=== PATIENT | male | born 1935 | race Caucasian/White ===

== ENCOUNTER 2017-08-05 16:48 | Inpatient (IN) | payer OTHER ==
[~2017-08-05] VITALS: Ht 177.8 cm; Wt 90.4 kg
--- NOTE | ~2017-08-05 | S ---
[facility] [place] [place] [address] SURGICAL PATH RPT PROCEDURE Name: RYDER MEDINA Room #: 440-P DIS IN M.R.#: [id number] Admission: 08/05/17 Date of : 37 Discharge: 08/09/17 Report #: [id number] Path Case #: [id number] PATHOLOGY REPORT COLLECTION DATE: 08/07/2017 RECEIVED DATE: 08/09/2017 SUBMITTING PHYS: Dr. Raul Dinero OTHER PHYS: Dr. Reji Campos SPECIMEN(S) RECEIVED: A.Bx of thickened fold at duodenum B.Bx of gastritis C.Bx of nodule at high cardia * * * * * * * * * * * * FINAL DIAGNOSIS: A. Small bowel, duodenum, biopsy: - Unremarkable duodenal mucosa. B. Stomach, biopsy: - Mild chronic inactive gastritis. - An H. pylori immunostain is negative (Block B1; appropriately reactive control). C. Stomach, nodule, biopsy: - Features suggestive of hyperplastic polyp. PATHOLOGIST: Omero Rascon M.D. REPORT ELECTRONICALLY SIGNED BY: Omero Rascon M.D. DATE/TIME: 08/10/2017 14:29 * * * * * * * * * * * * GROSS PATHOLOGY: A. Received in formalin labeled "Ryder Medina, BX of thickened fold at duodenum," is a segment of lang soft tissue measuring 0.4 cm in maximum dimension. The specimen is submitted entirely in cassette A1. B. Received in formalin labeled "KATERINA Kamara of gastritis," are 5 segments of lang soft tissue measuring 1.1 x 0.5 x 0.3 cm in aggregate dimensions and ranging from 0.3 to 0.6 cm in maximum dimension. The specimen is submitted entirely in cassette B1. C. Received in formalin labeled "KATERINA Kamara of nodule at high cardia," are 2 segments of lang soft tissue measuring 0.6 x 0.3 x 0.3 cm in aggregate dimensions and ranging from 0.2 to 0.4 cm in maximum dimension. The specimen is submitted entirely in cassette C1. (TSD; 08/09/2017) [address] [place] [address] SURGICAL PATH RPT PROCEDURE Name: RYDER MEDINA Room #: 440-P DIS IN M.R.#: [id number] Admission: 08/05/17 Date of : 37 Discharge: 08/09/17 Report #: [id number] Path Case #: [id number] CLINICAL HISTORY: Pre-OP DX: Nausea, vomiting, dysphagia Post-OP DX: Gastritis, thickened fold, esophagitis, nodules INITIAL CPT CODE(S): A; 42016 B; 07704, 12805 C; 15827 Professional services performed by [facility] at [facility] [address] [place] [address] Technical services performed by [facility] at [address] [place] [address]., [address], [place] [address]. [facility] [address] [place] [address] PHONE: [phone] DIRECTOR: Nicolas Rubin M.D. * * * END OF REPORT * * *
--- NOTE | ~2017-08-05 | P ---
[facility] [place] [address] PROCEDURE REPORT Name: RYDER WORKMAN Room #: 440-P [facility] IN ..#: [id number] Admission: 08/05/17 Attend Phys: Reji Osborne MD Discharge: Date of : 37 Report #: [id number] THIS REPORT FOR: //name// CC: Mahogany Osborne MD DATE OF SERVICE: 08/07/2017 PROCEDURE PERFORMED: Upper endoscopy with biopsies and esophageal dilation. HISTORY OF PRESENT ILLNESS: The patient is an 81-year-old male with flu-like symptoms beginning last week, had recurrent nausea, vomiting, some abdominal pain, presented to the local hospital. CT scan there revealed what appeared to be a duodenal mass. He is feeling better at this time. He has had a previous upper endoscopy with dilation for dysphagia in the past, which was helpful. This was several years ago. Plan is for EGD with dilation and further evaluation. DESCRIPTION OF PROCEDURE: The risks and benefits of the procedure were explained to the patient, those risks including but not limited to bleeding, perforation, the risk of sedation. He understood these risks and gave informed consent. Sedation was given using propofol and ketamine per anesthesia. Next, using a standard U*tiquen upper endoscope, the scope was placed in the patient's mouth and advanced under direct vision through the esophagus, stomach and into the third portion of the duodenum. The upper and mid esophagus were normal in appearance. There was evidence of grade B erosive esophagitis at the GE junction. Just below the GE junction in the high cardia was a small nodule, approximately 3-4 mm in size. Biopsies were obtained. There was no obvious stricture in the distal esophagus, although it was somewhat narrowed and again there was evidence of reflux esophagitis. Overall, the gastric mucosa was normal. The pylorus was normal and patent. The duodenal bulb was normal. As I advanced the scope from the first to second portion of the duodenum, there was what appears to be a submucosal type mass. This does not cause an obstruction. Next, the scope was then brought back up into the patient's stomach and a Savary guidewire was inserted through the scope, leaving the guidewire in place. Next, a 51-[place] Savary dilation of his esophagus was then performed without difficulty. The wire and dilator removed. I was able to advance the scope through this quite easily. There was no real mucosal abnormality at this area, but there was either a submucosal mass or some extrinsic compression in this area. Opposite of that area, there was a thickened fold of the duodenum. Biopsies were obtained. The third portion of the duodenum was normal. I was able to identify the major papilla, which appeared normal in the second portion. The scope was then withdrawn and the procedure terminated. The patient tolerated the procedure well. [address] [address] PROCEDURE REPORT Name: RYDER WORKMAN Room #: 440-P [facility] IN M.R.#: [id number] Admission: 08/05/17 Attend Phys: Reji Osborne MD Discharge: Date of : 37 Report #: [id number] IMPRESSION: 1. Grade B erosive esophagitis. 2. Mild narrowing at the distal esophagus. 3. High cardia nodule. 4. Submucosal mass versus slight extrinsic decompression at the second portion of the duodenum. 5. Thickened fold at second portion of the duodenum. RECOMMENDATIONS: 1. Await biopsy results. 2. Observe the patient post-dilation. 3. Would recommend an endoscopic ultrasound for further evaluation of the duodenal submucosal mass in the near future as an outpatient. 4. Daily PPI therapy. Thank you for allowing me to participate in his care. <ELECTRONICALLY SIGNED> By: Raul Dinero MD 08/08/17 1030 1528 [id number] Raul Dinero MD /nt
--- NOTE | ~2017-08-05 | EKG ---
[address] [address] ELECTROCARDIOGRAM REPORT Name: WELFARE SPECIALISTRYDER J Room #: 440-P ADM IN M.R.#: [id number] Admission: 08/05/17 Attend Phys: Reji Osborne MD Discharge: Date of : 37 Report #: [id number] THIS REPORT FOR: //name// [facility] Test Date: 2017-08-05 Test Time: 23:23:32 Pat Name: RYDER WORKMAN Department: Room: 440 P Gender: M Marketing Operations Intern: patricia : 1935 Requested By: Yari Deshpande Order Number: [id number] MD: Cooper Baez Measurements Intervals [place] Rate: 88 P: 75 CA: 258 QRS: 88 QRSD: 153 T: 34 QT: 391 QTc: 473 Interpretive Statements Sinus rhythm Atrial premature complex Prolonged CA interval Right bundle branch block No previous ECG available for comparison Electronically Signed On 08-06-2017 8:07:33 CDT by Cooper Baez [email or web address] <ELECTRONICALLY SIGNED> By: Cooper Baez MD 08/06/17 0807 D: 09/2322 22 Cooper Baez MD /JESUS
--- NOTE | ~2017-08-05 | HC ---
[facility] [place] [place] [address] CONSULTATION Name: RYDER WORKMAN Hilary Room #: 440-P [facility]..#: [id number] Admission: 08/05/17 Attend Phys: Reji Osborne MD Discharge: 08/09/17 Date of : 36 Report #: [id number] THIS REPORT FOR: //name// CC: ALY Osborne REASON FOR CONSULTATION: The patient is an 81-year-old male with acute GI symptoms and possible mass of duodenum. HISTORY OF PRESENT ILLNESS: This is an 81-year-old male with some major health problems. There has been chronic obstructive pulmonary disease. He was a former cigarette smoker. More recently, he was treated as an outpatient about 3 weeks ago for pneumonia, with 10 days of antibiotics. He reports he has recovered from that. At baseline, he uses 2 liters of oxygen at night for his chronic obstructive pulmonary disease. Interestingly, last weekend, he started to feel bad and he stated he was "sick," like he had the flu. Initially, it started with a sore throat, and then he developed some episodes of nausea and vomiting. He had trouble eating and it was several days before he could start eating. He did not have any severe abdominal pain, but he had vague abdominal discomfort and some gurgling in his abdomen. It was also noted that his was ill about the same time as well. He thought he was getting better and started eating some, but yesterday felt worse. It started with lots of nausea and vomiting. He presented to the hospital at [place] in [place]. He underwent evaluation which included a CT, which revealed opacity in the right lung. He also had a 2.1 x 2.2 x 3.0 cm hyperenhancing mass, inseparable from the posterior margin of the first and second portion of duodenum. Etiology was not entirely clear. The patient reports only GI problem in the past has been dysphagia, which he was dilated several years ago. He reports nothing else was found. He reports until his acute illness, he has not had any problems with nausea, vomiting, or altered bowel habits. He did have a colonoscopy about a year ago and was told he had a small colon polyp. In addition, he does have dysphagia for solids such as taking pills. PAST MEDICAL HISTORY: Chronic obstructive pulmonary disease, high blood pressure, hyperlipidemia, enlarged prostate, reflux disease, pneumonia recently, esophageal stricturing. PAST SURGICAL HISTORY: Back surgery and hernia surgery x 3. ALLERGIES: HYDROCODONE, CODEINE, LISINOPRIL, HYDROCHLOROTHIAZIDE, LOVASTATIN, AND OMEPRAZOLE. [address] [address] CONSULTATION Name: RYDER WORKMAN Room #: 440-P [facility].#: [id number] Admission: 08/05/17 Attend Phys: Reji Osborne MD Discharge: 08/09/17 Date of : 37 Report #: [id number] USUAL HOME MEDICATIONS: Include AccuNeb 3 mL every 4 hours, Fosamax 70 mg weekly, aspirin 81 mg daily, Symbicort 160 mcg twice daily, carvedilol 6.25 mg twice daily, gemfibrozil 600 mg twice daily, prednisone 10 mg daily, tamsulosin 0.4 mg daily. FAMILY HISTORY: No family history of colon cancer or ulcer disease. SOCIAL HISTORY: He is . He is a former cigarette smoker. He drank alcohol in the past, but has not done so in many years. REVIEW OF SYSTEMS: GENERAL: No change in weight, fever or chills. CENTRAL NERVOUS SYSTEM: No focal weakness, numbness, loss of consciousness strokes. ENT: Hard of hearing. No change in vision or sores in the mouth. PULMONARY: Recent pneumonia, chronic obstructive pulmonary disease, requires oxygen at night. CARDIOVASCULAR: No chest pain, chest tightness or palpitations. GASTROINTESTINAL: Reflux symptoms in the past, treated with acid inhibitors. He also has had esophageal dilation. No history of liver disease or gallbladder disease. Small polyp on a colonoscopy. GENITOURINARY: Enlarged prostate, no kidney stones or urinary tract infections. MUSCULOSKELETAL: Back surgery. Arthralgias in his hands. SKIN: Without rashes. PSYCHIATRIC: No depression, anxiety or bipolar illness. ENDOCRINE: He is not aware of diabetes or thyroid problems, nor has he had change in hair, skin or weight. HEMATOLOGIC: No bleeding, bruising or malignancies. PHYSICAL EXAMINATION BRIEF HISTORY: GENERAL: The patient is a well-developed, well-nourished, overweight male, in no acute distress. VITAL SIGNS: Blood pressure 152/85, pulse of 83. HEENT: Anicteric. Pupils equal and round. Oropharynx clear. NECK: Supple. CHEST: Clear. HEART: Regular rate and rhythm, normal S1 and S2. ABDOMEN: Normal bowel sounds, soft, nontender, without hepatosplenomegaly or masses. RECTAL: Not done. EXTREMITIES: Without cyanosis, clubbing, edema. NEUROLOGIC: Oriented to person, place and time. Moves all 4 extremities well. LABORATORY DATA: White count 11.5, hemoglobin 11.8. MCV 86.8. Electrolytes unremarkable. Creatinine 0.7. [facility] [address] [place] [address] CONSULTATION Name: RYDER WORKMAN Room #: 440-P DIS IN M.R.#: [id number] Admission: 08/05/17 Attend Phys: Reji Osborne MD Discharge: 08/09/17 Date of : 37 Report #: [id number] ASSESSMENT: 1. Duodenal mass. It is not clear whether it is intrinsic or extrinsic to duodenum. I doubt current symptoms are related to this lesion. 2. Acute gastrointestinal symptoms, suspect viral illness, improved today. 3. Chronic obstructive pulmonary disease. 4. Recent pneumonia. 5. Solid food dysphagia. 6. High blood pressure. 7. Benign prostatic hypertrophy. 8. Reflux disease and esophagitis. RECOMMENDATIONS: 1. Upper endoscopy tentatively planned tomorrow. 2. Esophageal dilation with upper endoscopy. 3. May need endoscopic ultrasound if upper endoscopy is nondiagnostic. 4. He may require long-term use of a PPI. 5. Caution with Fosamax, which could cause esophagitis. <ELECTRONICALLY SIGNED> By: Vincent Wright MD 08/12/17 1200 1625 1543 Vincent Wright MD /nt
[2017-08-05 19:33] VITALS: BP 109/56
[2017-08-05] MEDS ORDERED: GEMFIBROZIL 60600 MG PO (20:15)
[2017-08-05] MEDS ORDERED: PREDNISONE 10 M10 MG PO (20:16)
[2017-08-05] MEDS ORDERED: CARVEDILOL6.25 MG (20:16)
[2017-08-05] MEDS ORDERED: FLOMAX0.4 MG PO (20:17)
[2017-08-05] MEDS ORDERED: ACCUNEB SO1.25 MG/1 INH (20:30)
[2017-08-05] MEDS ORDERED: ASPIR 8181 M1 PO (20:30)
[2017-08-05] MEDS ORDERED: SYMBICORT160 MCG/4. INH (20:32)
[2017-08-05] MEDS ORDERED: FOSAMAX 70 MG T70 MG PO (20:43)
[2017-08-06 04:03] VITALS: BP 118/68
[2017-08-06 04:58] LABS: HEMATOCRIT 35.4 % (42.0-52.0); HEMOGLOBIN 11.8 gm/dL (14.0-18.0); MCH 28.9 pg (26.0-34.0); MCHC 33.3 g/dL (28.0-37.0); MCV 86.8 fL (80.0-100.0); RBC 4.08 mil/uL (4.50-6.00); WBC 11.5 thou/uL (4.0-11.0)
[2017-08-06 05:07] LABS: CALCIUM 8.3 mg/dL (8.5-10.1); CREATININE 0.7 mg/dL (0.7-1.3); POTASSIUM 3.5 mmol/L (3.5-5.1)
[2017-08-06 08:00] VITALS: BP 152/85
[2017-08-06 16:00] VITALS: BP 139/71
[2017-08-06 19:58] VITALS: BP 145/77
[2017-08-07 05:38] LABS: HEMATOCRIT 33.8 % (42.0-52.0); HEMOGLOBIN 11.8 gm/dL (14.0-18.0); MCH 29.6 pg (26.0-34.0); MCHC 34.9 g/dL (28.0-37.0); MCV 84.8 fL (80.0-100.0); RBC 3.99 mil/uL (4.50-6.00); RDW 13.8 % (10.5-14.5); WBC 13.1 thou/uL (4.0-11.0)
[2017-08-07 05:46] LABS: CALCIUM 7.9 mg/dL (8.5-10.1); CREATININE 0.9 mg/dL (0.7-1.3); POTASSIUM 3.4 mmol/L (3.5-5.1)
[2017-08-07 07:08] VITALS: BP 118/65
[2017-08-07 15:38] VITALS: BP 141/75
[2017-08-07 19:35] VITALS: BP 149/89
[2017-08-08 05:14] VITALS: BP 132/73
[2017-08-08 05:51] LABS: HEMATOCRIT 34.6 % (42.0-52.0); HEMOGLOBIN 11.8 gm/dL (14.0-18.0); MCH 29.7 pg (26.0-34.0); MCV 87.5 fL (80.0-100.0); RBC 3.95 mil/uL (4.50-6.00); RDW 13.9 % (10.5-14.5); WBC 13.1 thou/uL (4.0-11.0)
[2017-08-08 06:01] LABS: CALCIUM 7.8 mg/dL (8.5-10.1); CREATININE 0.9 mg/dL (0.7-1.3); POTASSIUM 4.1 mmol/L (3.5-5.1)
[2017-08-08 08:00] VITALS: BP 146/80
[2017-08-08 16:00] VITALS: BP 136/75
[2017-08-08 19:40] VITALS: BP 144/87
[2017-08-09 04:43] VITALS: BP 160/76
[2017-08-09 06:22] LABS: HEMATOCRIT 33.6 % (42.0-52.0); HEMOGLOBIN 11.5 gm/dL (14.0-18.0); MCH 29.8 pg (26.0-34.0); MCHC 34.4 g/dL (28.0-37.0); MCV 86.5 fL (80.0-100.0); RBC 3.88 mil/uL (4.50-6.00); RDW 13.6 % (10.5-14.5); WBC 8.4 thou/uL (4.0-11.0)
[2017-08-09 06:40] LABS: CALCIUM 7.8 mg/dL (8.5-10.1); CREATININE 0.9 mg/dL (0.7-1.3); POTASSIUM 3.6 mmol/L (3.5-5.1)
[2017-08-09 08:00] VITALS: BP 147/74
[2017-08-09] MEDS ORDERED: AUGMENTIN 875-1 EACH PO (11:57)
[2017-08-09] MEDS ORDERED: PREDNISONE 10 M10 MG PO (11:59)
[2017-08-09 12:55] VITALS: BP 147/74
== END 2017-08-09 14:15 | disposition home or self-care (01) | DRG 871 ==
LOC: 4S 16:48
PROVIDERS: Hospitalist; Nurse Practitioner Family
PROC: 0D758ZZ Dilation of Esophagus, Via Natural or Artificial Opening Endoscopic (ICD-10-PCS; principal; 2017-08-07)
PROC: 0DB68ZX Excision of Stomach, Via Natural or Artificial Opening Endoscopic, Diagnostic (ICD-10-PCS; principal; 2017-08-07)
PROC: 0DB98ZX Excision of Duodenum, Via Natural or Artificial Opening Endoscopic, Diagnostic (ICD-10-PCS; principal; 2017-08-07)
DX: A41.9 Sepsis, unspecified organism (principal); J69.0 Pneumonitis due to inhalation of food and vomit; J44.1 Chronic obstructive pulmonary disease with (acute) exacerbation; E78.5 Hyperlipidemia, unspecified; K21.9 Gastro-esophageal reflux disease without esophagitis; K31.9 Disease of stomach and duodenum, unspecified; R13.19 Other dysphagia; N40.0 Benign prostatic hyperplasia without lower urinary tract symptoms; K20.9 Esophagitis, unspecified; I10 Essential (primary) hypertension; Z79.899 Other long term (current) drug therapy; Z87.891 Personal history of nicotine dependence; Z88.6 Allergy status to analgesic agent; Z88.8 Allergy status to other drugs, medicaments and biological substances; Z79.82 Long term (current) use of aspirin; Z28.21 Immunization not carried out because of patient refusal
CPT/HCPCS: 10102; 62110; 62900; 70005